=== PATIENT | female | born 2000 | race Caucasian/White ===

== ENCOUNTER 2021-09-21 11:02 | Emergency (ER) | payer OTHER ==
[~2021-09-21] VITALS: Ht 165.1 cm; Wt 69.9 kg
[2021-09-21] MEDS ORDERED: ONDANSETRON HCL INJ 2MG/ML 2ML 2 MG/ML VIAL IV STA (11:35)
[2021-09-21] MEDS ORDERED: birth control patch (11:43)
[2021-09-21] MEDS ORDERED: OMEPRAZOLE40 MG PO (11:43)
[2021-09-21] MEDS ORDERED: SODIUM CHLORIDE 0.9% 1000ML 1,000 ML IV SCH (11:45)
[2021-09-21] MEDS ORDERED: ONDANSETRON HCL INJ 2MG/ML 2ML 2 MG/ML VIAL ONE (11:57)
[2021-09-21] MEDS ORDERED: KETOROLAC TROMETHAMINE 30 MG/ML VIAL IV STA (12:45)
[2021-09-21] MEDS ORDERED: KETOROLAC TROMETHAMINE 30 MG/ML VIAL ONE (12:54)
[2021-09-21] MEDS ORDERED: DICYCLOMINE HCL20 MG PO (14:34)
[2021-09-21] MEDS ORDERED: ONDANSETRON ODT4 MG PO (14:34)
== END 2021-09-21 14:38 | disposition home or self-care (01) ==
LOC: FSED 11:28
DX: R10.13 Epigastric pain (principal); R50.9 Fever, unspecified; R11.2 Nausea with vomiting, unspecified; K76.0 Fatty (change of) liver, not elsewhere classified
CPT/HCPCS: 74176; 76705; 80053; 81003; 81025; 85025; 96374; 96375; 99284; J1885; J2405